=== PATIENT | female | born 1965 | race Caucasian/White ===

== ENCOUNTER → 2017-06-03 | Outpatient (CLI) | payer BC ==
[2017-06-03 16:56] LABS: APPEARANCE CLEAR/COLORLESS; CSF TUBE NUMBER TUBE #4; RED CELL COUNT 92 /MM^3 (0-1); WHITE CELL COUNT 3 /MM^3 (0-5)
[2017-06-03 17:02] LABS: CSF PROTEIN 36 mg/dL (15-45); GLUCOSE, CSF 52 mg/dL (40-80)
[2017-06-03 17:18] LABS: APPEARANCE (RECHECK) CLEAR/COLORLESS; CSF TUBE NUMBER (RECHECK) TUBE #1; RED CELL COUNT (RECHECK) 94 /MM^3 (0-1)
[2017-06-03 17:25] LABS: CSF EOSINOPHILS 0 % (0-25); MONONUCLEAR WBC'S 88 % (50-90); POLYNUCLEAR WBC'S 12 % (0-3)
== END | disposition home or self-care (01) ==
LOC: RAD 14:44
PROVIDERS: Psychiatry & Neurology Clinical Neurophysiology
PROC: 009U3ZZ Drainage of Spinal Canal, Percutaneous Approach (ICD-10-PCS; principal; 2017-06-03)
DX: G31.84 Mild cognitive impairment of uncertain or unknown etiology (principal)
CPT/HCPCS: 62270; 77003; 82945; 83615 91; 83873 90; 83916 90; 84157; 86617 90; 86618 90; 87070; 87205; 89051